=== PATIENT | male | born 1940 | race Caucasian/White ===

== ENCOUNTER 2021-07-27 07:50 | Observation (INO) | payer OTHER ==
[2021-07-25 09:59] LABS: BASOPHILS % (AUTO) 0.6 % (0.0-5.0); EOSINOPHILS % (AUTO) 7.3 % (0.0-8.0); HEMATOCRIT 46.1 % (42-54); LYMPHOCYTES % (AUTO) 17.9 % (21.0-51.0); MEAN CORPUSCULAR HEMOGLOBIN 28.3 pg (27.0-33.0); MEAN CORPUSCULAR HGB CONC 32.3 g/dL (32.0-36.0); MEAN CORPUSCULAR VOLUME 87.5 fL (79-99); MONOCYTES % (AUTO) 11.8 % (3.0-13.0); NEUTROPHILS % (AUTO) 62.1 % (40.0-77.0); PLATELET COUNT (AUTO) 193 K/uL (130-400); RED BLOOD CELL COUNT(AUTO) 5.27 MIL/uL (4.50-6.20); RED CELL DISTRIBUTION WIDTH 15.5 % (11.0-15.5); WHITE BLOOD COUNT (AUTO) 6.9 K/uL (4.8-10.8)
[2021-07-25 10:19] LABS: INR 1.12 (0.85-1.15); PROTHROMBIN TIME 12.1 SEC (9.6-11.6)
[2021-07-25 10:20] LABS: PARTIAL THROMBOPLASTIN TIME 27.6 SEC (26.3-35.5)
[2021-07-25 10:32] LABS: ALBUMIN 3.5 g/dL (3.5-5.0); BILIRUBIN,TOTAL 0.7 mg/dL (0.2-1.0); CREATININE 0.9 mg/dL (0.5-1.5); POTASSIUM 4.6 mmol/L (3.5-5.1); TOTAL PROTEIN, SERUM 7.6 g/dL (6.0-8.3)
[2021-07-26 10:06] VITALS: BP 148/66
[2021-07-27] VITALS (22 sets, daily range): BP systolic 104–148; BP diastolic 46–93
[~2021-07-27] VITALS: Ht 170.2 cm; Wt 74.0 kg
[~2021-07-27 07:50] MED LIST: ASCO500T20 PO; CEFAZOLIN SODIUM 1 GM VIAL IVP SCH
[2021-07-27] MEDS ORDERED: LACTATED RINGERS 1000ML 1,000 ML IV ONE (08:02)
[2021-07-27] MEDS ORDERED: LIDOCAINE 1%-EPI 1:100,000 20 ML VIAL IJ ONE ×2 (08:40→10:08)
[2021-07-27] MEDS ORDERED: CEFAZOLIN SODIUM 1 GM VIAL ONE (08:40)
[2021-07-27] MEDS ORDERED: GENTAMICIN SULFATE 80 MG/2 ML VIAL ONE (08:40)
[2021-07-27] MEDS ORDERED: ROCURONIUM 10MG/1ML SYR 10 MG/ML ML ONE (09:25)
[2021-07-27] MEDS ORDERED: GLYCOPYRROLATE 1 MG/5 ML SYRINGE ONE (09:25)
[2021-07-27] MEDS ORDERED: PROPOFOL 10 MG/ML 20ML VIAL IV ONE (09:25)
[2021-07-27] MEDS ORDERED: ESMOLOL HCL 10 MG/ML 10 ML VIAL ONE (09:26)
[2021-07-27] MEDS ORDERED: FENTANYL CITRATE PF 50 MCG/1 ML 2ML VIAL ONE (09:26)
[2021-07-27] MEDS ORDERED: LIDOCAINE PF 100MG/5ML (2%) SYRINGE 5ML ONE (09:26)
[2021-07-27] MEDS ORDERED: CEFAZOLIN SODIUM 2 GM VIAL IV ONE (09:38)
[2021-07-27] MEDS ORDERED: MINERAL OIL 30 ML UDCUP ONE (09:52)
[2021-07-27] MEDS ORDERED: ONDANSETRON 4MG INJ ONE (10:01)
[2021-07-27] MEDS ORDERED: MINERAL OIL 30 ML UDCUP PO ONE (10:08)
[2021-07-27] MEDS ORDERED: SUGAMMADEX SODIUM 200 MG/2 ML VIAL IV ONE (10:45)
[2021-07-27] MEDS ORDERED: D5W-1/2 NS/20MEQ KCL 1,000 ML IV SCH (14:00)
[2021-07-27] MEDS ORDERED: HYDROCODONE/ACETAMINOPHEN 5/325 MG TAB PO PRN (14:00)
[2021-07-27] MEDS: CEFAZOLIN SODIUM 1 GM VIAL IVP SCH ×2 (15:29→22:48)
[2021-07-28] VITALS: BP 116/56
[2021-07-28 04:00] VITALS: BP 113/67
[2021-07-28] MEDS: CEFAZOLIN SODIUM 1 GM VIAL IVP SCH (06:05)
[2021-07-28 08:04] VITALS: BP 123/73
[2021-07-28 10:00] VITALS: BP 118/61
== END 2021-07-28 11:15 | disposition home or self-care (01) ==
LOC: DAH 07:50 → 4DH 07:51 → EDSTATUS 09:30
PROVIDERS: ADMIT Plastic Surgery; ATTEND Plastic Surgery
DX: S51.801A Unspecified open wound of right forearm, initial encounter (principal); Z20.822 Contact with and (suspected) exposure to COVID-19; C44.612 Basal cell carcinoma of skin of right upper limb, including shoulder; Z68.26 Body mass index [BMI] 26.0-26.9, adult; Z28.21 Immunization not carried out because of patient refusal; X58.XXXA Exposure to other specified factors, initial encounter; Y93.89 Activity, other specified; Y92.89 Other specified places as the place of occurrence of the external cause
CPT/HCPCS: 15002; 15100; 36415; 71045; 80053; 85025; 85610; 85730; 87635; 93005 ×2; 96374; 96376 ×2; A4215; A4221; A4222; A4223; A4663; A6223; A6450; G0378 ×23; J0690 ×6; J1580; J2001; J2405; J2704; J3010; J3480; J3490 ×3; J7120; Q4050